=== PATIENT | male | born 1990 | race Caucasian/White ===

== ENCOUNTER 2021-08-22 17:23 | Emergency (ER) | payer SELFPAY ==
[~2021-08-22] VITALS: Ht 170.2 cm; Wt 111.0 kg
[2021-08-22 19:08] VITALS: BP 126/73
== END 2021-08-22 19:10 | disposition home or self-care (01) ==
LOC: ER 17:23
DX: F41.9 Anxiety disorder, unspecified (principal); R42 Dizziness and giddiness
CPT/HCPCS: 93005; 99283